=== PATIENT | female | born 2005 | race Caucasian/White ===

== ENCOUNTER 2024-02-09 10:52 | Emergency (ER) | payer SELFPAY ==
[2024-02-09 12:08] LABS: Bilirubin Neg (Negative); Blood, Urine 10 (Negative); Glucose, Urine (Dipstick) Normal (Negative); Ketone, Urine Negative (Negative); Leukocyte 25 (Negative); Nitrite Negative (Negative); Protein, Urine (Dipstick) Negative (Neg-Trace); Urobilinogen Normal mg/dL (Less than 2)
[2024-02-09 12:19] LABS: Clarity Clear (Clear)
[2024-02-09] MEDS ORDERED: Ketorolac Tromethamine 30 MG (1 mL) VIAL ONE (12:26)
[2024-02-09 12:40] LABS: BHCG - Serum Negative (NEGATIVE); Pregs Control Background? CLEAR/WHITE (CLR/WHITE); Pregs Control Bar Appear? YES (CONTROL BAR)
[2024-02-09 12:40] LABS: Bacteria/HPF 1+ HPF (None Seen); CAUTI Indications for Culture Pelvic or flank pain; RBC/HPF 0-3 HPF (0-3); WBC/HPF 0-3 HPF (0-3)
[2024-02-09 12:41] LABS: Urine Culture Reflex No No
[2024-02-09 12:45] LABS: #Basophils 0.03 10x3/uL (0.0-0.2); #Eosinophils 0.06 10x3/uL (0.0-0.5); #Monocytes 0.41 10x3/uL (0.0-1.1); #Neutrophils 4.73 10x3/uL (1.5-8.4); %Basophils 0.5 % (0.0-2.0); %Eosinophils 0.9 % (0.0-6.0); %Lymphocytes 20.5 % (18.0-47.0); %Monocytes 6.2 % (0.0-10.0); %Neutrophils 71.6 % (40.0-75.0); ALT (SGPT) 10 U/L (8-55); AST (SGOT) 10 U/L (5-34); Albumin 3.6 g/dL (3.5-5.0); Alkaline Phosphatase 48 U/L (40-100); Anion Gap 15 mmol/L (10-20); BUN (Urea Nitrogen) 4 mg/dL (7.0-18.7); Bilirubin, Total 0.4 mg/dL (0.2-1.2); Calc. Creatinine Clearance 0 mL/min (70-130); Calcium 9.8 mg/dL (7.8-10.44); Carbon Dioxide 23 mmol/L (22-29); Chloride 108 mmol/L (98-107); Estimated GFR 131; Globulin 2.9 g/dL (2.4-3.5); Glucose 95 mg/dL (70-105); Hematocrit 33.3 % (34.9-44.5); Hemoglobin 11.6 g/dL (12.0-15.5); Mean Corpuscular HGB CONC 34.8 g/dL (32.0-36.0); Mean Corpuscular Hemoglobin 30.2 pg (27.0-33.0); Mean Corpuscular Volume 86.7 fL (81.6-98.3); Platelet Count 337 10x3/uL (150-450); Potassium 3.7 mmol/L (3.5-5.1); Protein, Total 6.5 g/dL (6.0-8.3); Red Blood Cell (RBC) Count 3.84 10x6/uL (3.90-5.03); Sodium 142 mmol/L (136-145); White Blood Cell (WBC) Count 6.6 10x3/uL (3.5-10.5)
[2024-02-09] MEDS ORDERED: cefTRIAXone (ROCEPHIN) 1 GM VIAL ONE (13:33)
== END 2024-02-09 13:41 | disposition home or self-care (01) ==
LOC: CSHERS 10:52
DX: N12 Tubulo-interstitial nephritis, not specified as acute or chronic (principal); G43.909 Migraine, unspecified, not intractable, without status migrainosus; F17.290 Nicotine dependence, other tobacco product, uncomplicated
CPT/HCPCS: 36415; 80053; 81001; 83605; 84703; 85025; 96374; 96375; J0696; J1885

== ENCOUNTER 2025-01-01 12:35 | Emergency (ER) | payer SELFPAY ==
[2025-01-01 14:26] LABS: Troponin I Less than 0.010 ng/mL (< 0.028)
== END 2025-01-01 15:30 | disposition home or self-care (01) ==
LOC: CSHERS 12:35
DX: F41.9 Anxiety disorder, unspecified (principal); F17.290 Nicotine dependence, other tobacco product, uncomplicated
CPT/HCPCS: 36415; 71045; 84484; 93005

== ENCOUNTER 2025-01-21 14:28 | Emergency (ER) | payer SELFPAY ==
[2025-01-21 15:03] LABS: Glucose, Urine (Dipstick) Normal (Negative); Leukocyte 25 (Negative); Protein, Urine (Dipstick) 30 mg/dl (Neg-Trace); Specific Gravity, Urine 1.025 (1.005-1.030)
[2025-01-21 15:07] LABS: Pregnancy Test - Urine (BHCG) Negative (Negative)
[2025-01-21 15:11] LABS: Pregu Control Background? CLEAR/WHITE (CLR/WHITE); Pregu Control Bar Appear? YES (CONTROL BAR)
[2025-01-21 16:07] LABS: CAUTI Indications for Culture Pelvic or flank pain; RBC/HPF 0-3 HPF (0-3)
[2025-01-21 16:08] LABS: Bacteria/HPF Rare-Few HPF (None Seen); Mucous/LPF 1+ LPF (<2+); Other Microscopic Description Less than 2 mL rec'd; Urine Culture Reflex No No
== END 2025-01-21 15:47 | disposition home or self-care (01) ==
LOC: CSHERS 14:28
DX: N39.0 Urinary tract infection, site not specified (principal); F17.290 Nicotine dependence, other tobacco product, uncomplicated
CPT/HCPCS: 81001; 81025; 99284

== ENCOUNTER 2025-01-30 19:52 | Emergency (ER) | payer SELFPAY ==
[2025-01-30 20:11] LABS: Glucose, Urine (Dipstick) Normal (Negative); Leukocyte 25 (Negative); Protein, Urine (Dipstick) 15 mg/dl (Neg-Trace); Specific Gravity, Urine 1.015 (1.005-1.030)
[2025-01-30 20:16] LABS: Pregnancy Test - Urine (BHCG) Negative (Negative); Pregu Control Background? CLEAR/WHITE (CLR/WHITE); Pregu Control Bar Appear? YES (CONTROL BAR)
[2025-01-30 20:27] LABS: Bacteria/HPF 2+ HPF (None Seen); CAUTI Indications for Culture Fever or rigors; RBC/HPF None Seen HPF (0-3)
[2025-01-30 20:28] LABS: Urine Culture Reflex No No
== END 2025-01-30 23:37 | disposition home or self-care (01) ==
LOC: CSHERS 19:52
DX: R11.2 Nausea with vomiting, unspecified (principal); F17.290 Nicotine dependence, other tobacco product, uncomplicated
CPT/HCPCS: 81001; 81025; 87428; 99284; Q0162